=== PATIENT | female | born 1995 | race Caucasian/White ===

== ENCOUNTER 2018-04-11 12:26 | Emergency (ER) | payer BC ==
--- NOTE | 2018-04-11 12:30 | ED ---
Allergic Reaction/Systemic - HPI Summary HPI Summary: This is scribe Lacy Mccarthy documenting for attending Yadira Alvarenga MD This patient is a 22 year old F BIBA to [facility] with a chief complaint of an allergic reaction to a cat while on a flight from [place] to [place] this morning. She states she first noticed nausea, throat tightening, lightheadedness , and mild abdominal pain roughly fifteen minutes into the flight when she asked a in flight refueling operator if there was a cat on the flight, as she has had similar allergic reactions to cats previously. She Denies CP and hives. PMHx of PCOS, PTSD, anxiety, and migraines. EMS reports she was given 50mg of Benadryl and a Duoneb treatment. Vital signs during history: 147/88 blood pressure 111 pulse 100 SaO2 on RA 97.3 Temperature 22 Respiration rate I, Dr. Alvarenga ,personally performed the services described in this documentation as scribed in my presence and it is both accurate and complete - History of Current Complaint Chief Complaint: EDAllergicReaction Hx Obtained From: Patient Onset/Duration: Sudden Onset, Started hours ago Timing: Constant Severity Initially: Moderate Severity Currently: Mild Pain Intensity: 0 Location: Diffuse Character: Swelling Aggravating Factor(s): Other - cat on flight Alleviating Factor(s): Nothing Associated Signs And Symptoms: Positive: Abdominal Pain, Lightheadedness, Nausea , Throat Tightening - Related Hx Possible Reaction To: Animal - Allergies/Home Medications Allergies/Adverse Reactions: Allergies Allergy/AdvReac Type Severity Reaction Status Date / Time cat dander Allergy Swelling Verified 04/11/18 12:28 Of Face,Lips,& Throat kiwi Allergy Swelling Verified 04/11/18 12:28 Of Face,Lips,& Throat Home Medications: Home Medications Amitriptyline TAB* [Elavil TAB*] 50 mg PO BEDTIME 04/11/18 [History Confirmed ] Sertraline* [Zoloft*] 175 mg PO BEDTIME 04/11/18 [History Confirmed 04/11/18] Spironolactone TAB* [Aldactone TAB 25 MG*] 50 mg PO DAILY 04/11/18 [History Confirmed 04/11/18] PMH/Surg Hx/FS Hx/Imm Hx Endocrine/Hematology History: Reports: Other Endocrine/Hematological Disorders - PCOS Denies: Hx Anticoagulant Therapy, Hx Diabetes Cardiovascular History: Denies: Hx Hypertension, Hx Pacemaker/ICD History: Denies: Hx Renal Disease Sensory History: Denies: Hx Hearing Aid Neurological History: Reports: Hx Migraine Psychiatric History: Reports: Hx Anxiety, Hx Post Traumatic Stress Disorder Denies: Hx Panic Disorder - Surgical History Surgery Procedure, Year, and Place: WISDOM TEETH Infectious Disease History: No Infectious Disease History: Denies: Traveled Outside the [place] in Last 30 Days - Family History Known Family History: Positive: Diabetes - maternal grandfather, Other - grandmother [place] - Social History Alcohol Use: Rare Substance Use Type: Reports: None Smoking Status (MU): Never Smoked Tobacco Review of Systems Positive: Other - lightheadedness Positive: Sore Throat - throat tightening Negative: Chest Pain Positive: Shortness Of Breath Positive: Abdominal Pain, Nausea Musculoskeletal: Negative Negative: Rash Neurological: Negative Psychological: Normal All Other Systems Reviewed And Are Negative: Yes Physical Exam - Summary Physical Exam Summary: Appearance: Well-appearing, no pain distress, well-nourished, speaks full sentences, normal phonation Skin: Warm, color reflects adequate perfusion, dry, no hives or rash Head: Normal Head/Face inspection, atraumatic Eyes: Conjunctiva clear ENT: Normal inspection Neck: Supple, no nodes, no JVD Respiratory: Lungs clear, normal breath sounds, no respiratory distress Cardio: RRR, No murmur, pulses normal, brisk capillary refill Abdomen: Soft, nontender Bowel sounds: Present Musculoskeletal: Strength Intact/ROM intact, no calf tenderness, no edema. Psychological: Anxious Neuro: Alert, muscle tone normal, no focal deficit Triage Information Reviewed: Yes Vital Signs On Initial Exam: Initial Vitals Temp Pulse Resp BP Pulse Ox 97.3 F 118 22 147/88 100 04/11/18 12:26 04/11/18 12:26 04/11/18 12:26 04/11/18 12:26 04/11/18 12:26 Vital Signs Reviewed: Yes Diagnostics - Vital Signs Vital Signs Temp Pulse Resp BP Pulse Ox 04/11/18 12:26 97.3 F 118 22 147/88 100 - Laboratory Result Diagrams: 04/11/18 12:45 04/11/18 12:45 Lab Statement: Any lab studies that have been ordered have been reviewed, and results considered in the medical decision making process. Re-Evaluation - Re-Evaluation First Re-Evaluation Time: 14:30 Change: Improved Comment: Pt's throat no longer tight. Feels better. No rash. No wheezes. Allergic Reaction Course/Dx - Course Course Of Treatment: 22 year old F LOLA with an allergic reaction to a cat while on a [employer] flight from [place] to [place] this morning. She states she first noticed nausea, throat tightening, lightheadedness, and mild abdominal pain roughly fifteen minutes into the flight when she asked a in flight refueling operator if there was a cat on the flight, as she has had similar allergic reactions to cats. She Denies CP and hives. 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 Sa02 is 100% on RA at time of initial evaluation and throughout ED visit. Bloodwork is unremarkable. Patient is given 125mg Solu-Medrol IV and 40mg Pepcid IV. Patient is feeling better in the ED. Patient appears more alert and responsive. Patient will be discharged to continue oral prednisone and pepcid x 5 days, and antihistamines x 2 days, then prn. Patient is agreeable with this plan. - Diagnoses Provider Diagnoses: Anaphylaxis Discharge - Sign-Out/Discharge Documenting (check all that apply): Patient Departure - Discharge Plan Condition: Stable Disposition: HOME Prescriptions: Famotidine TAB* [Pepcid 20 MG TAB*] 40 mg PO DAILY #10 tab predniSONE TAB* [Deltasone 20 MG TAB*] 40 mg PO DAILY #10 tab Patient Education Materials: Anaphylaxis (ED) Referrals: Miranda SCHWARZ,Ana Castillo [Primary Care Provider] - 2 Days Additional Instructions: You had a severe allergic reaction presumed secondary to the prolonged close exposure to a cat on your [employer] flight from [place] to [place]. You were treated with Benadryl 50mg IV and albuterol neb by the ambulance. Then you received IV solumedrol 125mg and IV famotidine 40mg while you were in the ER with improvement in your symptoms. You should continue prednisone 40mg daily for 5 days, and also famotidine 40mg daily for 5 days. Also take loratadine or cetirizine or benadryl around the clock for at least 48 hrs, and then as needed. Return to the ER if you have new or worsening symptoms. - Billing Disposition and Condition Condition: STABLE Disposition: Home
[2018-04-11] MEDS ORDERED: methylPREDNISolone 125 MG* 2 ML VIAL IV ONE (12:37)
[2018-04-11] MEDS ORDERED: Famotidine IV* 10 MG/ML 2 ML (20 mg) IV SLOW PU ONE (12:37)
[2018-04-11 12:57] LABS: ABS Basophils 0.1 10^3/ul (0-0.2); ABS Eosinophils 0.1 10^3/ul (0-0.6); ABS Lymphocytes 2.7 10^3/ul (1.0-4.8); ABS Monocytes 0.7 10^3/ul (0-0.8); ABS Neutrophils 6.4 10^3/ul (1.5-7.7); ABS Nucleated RBC 0 10^3/ul; Eosinophil % 1.4 % (0-6); Hematocrit 36 % (35-47); Hemoglobin 12.2 g/dl (12.0-16.0); Lymphocyte % 27.1 % (25-47); Mean Corpuscular HGB Conc 34 g/dl (31-36); Mean Corpuscular Hemoglobin 28 pg (27-31); Mean Corpuscular Volume 83 fL (80-97); Mean Platelet Volume 8.4 um3 (7.4-10.4); Nucleated Red Blood Cells % 0.1; Platelet Count 282 10^3/ul (150-450); Red Cell Distribution Width 14 % (10.5-15)
[2018-04-11 13:06] LABS: INR 1.07 (0.77-1.02)
[2018-04-11 13:16] LABS: EGFR Non-African American 115.1 (>60)
[2018-04-11 14:20] LABS: Urine Appearance Clear; Urine Blood Negative (Negative); Urine Color Straw; Urine Ketones Negative (Negative); Urine Protein Negative (Negative); Urine Specific Gravity 1.006 (1.010-1.030); Urine Urobilinogen Negative (Negative)
[2018-04-11 14:35] VITALS: BP 133/73
== END 2018-04-11 14:52 | disposition home or self-care (01) ==
LOC: ED 12:26
DX: T78.2XXA Anaphylactic shock, unspecified, initial encounter (principal); Z91.09 Other allergy status, other than to drugs and biological substances; E28.2 Polycystic ovarian syndrome; F43.10 Post-traumatic stress disorder, unspecified; F41.9 Anxiety disorder, unspecified; G43.909 Migraine, unspecified, not intractable, without status migrainosus
CPT/HCPCS: 36415; 80053; 81003; 84702; 85025; 85379; 85610; 86140; 96374; 96375; 99283; J2930

== ENCOUNTER 2019-05-05 20:29 | Emergency (ER) | payer BC, OTHER ==
[2019-05-05] MEDS ORDERED: Acetaminophen TAB* 325 MG PO ONE (20:52)
[2019-05-05] MEDS ORDERED: Cyclobenzaprine TAB* 10 MG PO ONE (20:52)
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
[2019-05-05 22:11] VITALS: BP 100/72
== END 2019-05-05 22:09 | disposition home or self-care (01) ==
LOC: ED 20:29
DX: M62.838 Other muscle spasm (principal); R42 Dizziness and giddiness; V43.52XA Car driver injured in collision with other type car in traffic accident, initial encounter; Y92.410 Unspecified street and highway as the place of occurrence of the external cause; G43.909 Migraine, unspecified, not intractable, without status migrainosus; Z88.8 Allergy status to other drugs, medicaments and biological substances; Z91.048 Other nonmedicinal substance allergy status
CPT/HCPCS: 72050; 99283; A9270-GY